=== PATIENT | male | born 1965 | race Caucasian/White ===

== ENCOUNTER 2025-03-26 11:11 | Emergency (ER) | payer OTHER ==
[2025-03-26] MEDS ORDERED: Nitroglycerin 2% Ointment 1 INCH/1 GM Packet ONE (11:32)
[2025-03-26] MEDS ORDERED: Aspirin Chewable 81 MG TAB ONE (11:32)
[2025-03-26 11:40] LABS: #Basophils 0.03 10x3/uL (0.0-0.2); #Eosinophils 0.12 10x3/uL (0.0-0.7); #Monocytes 0.54 10x3/uL (0.11-0.59); #Neutrophils 3.78 10x3/uL (1.40-6.50); %Basophils 0.6 % (0.0-1.0); %Eosinophils 2.2 % (0.0-10.0); %Lymphocytes 17.6 % (21.0-51.0); %Monocytes 9.9 % (0.0-10.0); %Neutrophils 69.3 % (42.0-75.0); Hematocrit 51.8 % (42.0-52.0); Hemoglobin 16.9 g/dL (14.0-18.0); Mean Corpuscular Hemoglobin 27.5 pg (27.0-31.0); Mean Corpuscular Volume 84.4 fL (78.0-98.0); Platelet Count 292 10x3/uL (130-400); Red Blood Cell (RBC) Count 6.14 mill/uL (4.70-6.10); White Blood Cell (WBC) Count 5.45 10x3/uL (4.8-10.8)
[2025-03-26 12:06] LABS: Troponin I Less than 0.010 ng/mL (< 0.028)
[2025-03-26 13:17] LABS: ALT (SGPT) 85 U/L (Less than 45); AST (SGOT) 51 U/L (11-34); Albumin 3.8 g/dL (3.1-4.5); Alkaline Phosphatase 207 U/L (40-110); Anion Gap 16 mmol/L (10-20); BUN (Urea Nitrogen) 19 mg/dL (8.4-25.7); Bilirubin, Total 0.6 mg/dL (0.3-1.2); Calc. Creatinine Clearance 0 mL/min (70-130); Calcium 8.8 mg/dL (7.8-10.44); Carbon Dioxide 21 mmol/L (22-29); Chloride 106 mmol/L (98-107); Globulin 3.5 g/dL (2.4-3.5); Glucose 75 mg/dL (70-105); Lipase 21 U/L (8-78); Magnesium 2.4 mg/dL (1.6-2.6); Potassium 3.8 mmol/L (3.5-5.1); Sodium 139 mmol/L (136-145)
[2025-03-26 13:50] LABS: Troponin I Less than 0.010 ng/mL (< 0.028)
== END 2025-03-26 14:25 ==
LOC: ERS 11:11
DX: R07.9 Chest pain, unspecified (principal); I10 Essential (primary) hypertension; Z55.6 Problems related to health literacy
CPT/HCPCS: 71045; 80053; 83690; 83735; 83880; 84484; 85025; 93005; 96374; J2270